=== PATIENT | female | born 1980 | race Caucasian/White ===

== ENCOUNTER → 2022-01-17 | Outpatient (CLI) | payer BC ==
[~2022-01-17] VITALS: Ht 162.6 cm; Wt 109.1 kg
[~2022-01-17] MED LIST: ESCI10TA48 PO; LABE100T2 PO; LIDOCAINE 1% INJ 20 ML VIAL INJ ONE; PREN1TAB14 PO; TRM50T PO
--- NOTE | 2022-01-17 16:50 | Diagnostic Imaging Report ---
INDICATION: Thyroid masses. EXAMINATION: Patient presents for ultrasound-guided fine needle aspiration and Rotex biopsy. PROCEDURE: Patient was brought to the procedure room and placed on table in the supine position. Ultrasound imaging over the neck was performed to evaluate appropriate entry site. The neck was prepped and draped in the usual sterile fashion. There are several solid masses in the isthmus and left lobe. A small amount of 1% lidocaine was utilized for local anesthesia. A total of four passes were made into the dominant solid mass in the isthmus of the thyroid utilizing 25-gauge needles and fine-needle aspiration technique. A single pass was made with a Rotex needle and a Rotex biopsy was performed. Hemostasis was obtained. Patient tolerated the procedure well and left the department in stable condition. IMPRESSION: Successful ultrasound-guided fine-needle aspiration and Rotex biopsy of the dominant solid mass in the isthmus of the thyroid. Pathology results are currently pending. Dictated by: Dictated on workstation # [id number]
== END ==
LOC: RAD 14:15
PROVIDERS: ATTEND Otolaryngology
DX: E04.1 Nontoxic single thyroid nodule (principal)
CPT/HCPCS: 10005